=== PATIENT | male | born 1990 | race Caucasian/White ===

== ENCOUNTER 2025-05-18 13:59 | Emergency (ER) | payer BC, MEDICAID ==
[~2025-05-18] VITALS: Ht 177.8 cm; Wt 138.8 kg
[2025-05-18 14:06] VITALS: BP 145/61; TEMP 98.3; O2SAT 97
[2025-05-18] MEDS ORDERED: MAG HYDROX/AL HYDROX/SIMETH 30 ML UDC ONE (15:10)
[2025-05-18] MEDS ORDERED: ACETAMINOPHEN 325 MG TABLET ONE (15:11)
[2025-05-18] MEDS ORDERED: ASPIRIN EC 81 MG TABLET.DR PO ONE (15:11)
[2025-05-18] MEDS ORDERED: FAMOTIDINE (20 MG) 20 MG TABLET ONE ×2 (15:13)
[2025-05-18] MEDS ORDERED: ASPIRIN 81 MG TAB.CHEW ONE (15:16)
[2025-05-18] MEDS: FAMOTIDINE (20 MG) 20 MG TABLET PO ONE (15:20)
[2025-05-18] MEDS: ASPIRIN 81 MG TAB.CHEW PO ONE (15:20)
[2025-05-18] MEDS: MAG HYDROX/AL HYDROX/SIMETH 30 ML UDC PO ONE (15:20)
[2025-05-18] MEDS: ACETAMINOPHEN 325 MG TABLET PO ONE (15:21)
[2025-05-18 15:40] LABS: PLATELET COUNT (AUTO) 279 K/uL (150-450); RED BLOOD CELL COUNT(AUTO) 4.26 MIL/uL (4.5-6.0); RED CELL DISTRIBUTION WIDTH 13.8 % (11.5-15.0); WHITE BLOOD COUNT (AUTO) 7.8 K/uL (4.3-11.0)
[2025-05-18 15:44] LABS: CALCIUM, SERUM 8.9 mg/dL (8.5-10.1); CREATININE 0.9 mg/dL (0.6-1.3); SODIUM SERUM 138 mmol/L (136-145); UREA NITROGEN, BLOOD 14 mg/dL (7-18)
[2025-05-18 15:50] LABS: ASPARTATE AMINOTRANSFERASE 17 U/L (15-37); TOTAL PROTEIN, SERUM 6.7 g/dL (6.4-8.2)
[2025-05-18] MEDS ORDERED: HALO100V5 IM (19:12)
[2025-05-18] MEDS ORDERED: BENZ0.5T43 PO (19:12)
[2025-05-18] MEDS ORDERED: HYDR50TA61 PO (19:12)
[2025-05-18] MEDS ORDERED: TRAZ-252 PO (19:12)
== END 2025-05-18 23:46 | disposition short-term general hospital (02) ==
LOC: ER 14:15
DX: R07.89 Other chest pain (principal); R06.02 Shortness of breath; F15.10 Other stimulant abuse, uncomplicated; J45.909 Unspecified asthma, uncomplicated; R07.9 Chest pain, unspecified; F19.10 Other psychoactive substance abuse, uncomplicated; Z79.899 Other long term (current) drug therapy; Z88.0 Allergy status to penicillin
CPT/HCPCS: 36415; 71045-TC; 80048-TC; 80076-TC; 84484-TC; 85025-TC